=== PATIENT | male | born 1985 | race Caucasian/White ===

== ENCOUNTER 2018-09-20 04:03 | Emergency (ER) | payer OTHER ==
[~2018-09-20] VITALS: Ht 188 cm; Wt 70.3 kg
--- NOTE | 2018-09-20 04:14 | NUR ---
PT TAKEN TO BED 10.
[2018-09-20 04:25] VITALS: BP 136/83
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
[2018-09-20] MEDS ORDERED: ONDANSETRON 4 MG/2 ML VIAL IVP ONE (05:10)
[2018-09-20] MEDS ORDERED: ONDANSETRON 4 MG/2 ML VIAL ONE (05:21)
--- NOTE | 2018-09-20 05:28 | NUR ---
LABS DRAWN AT BEDSIDE BY RN AND TAKEN TO LAB.
[2018-09-20 05:32] LABS: BASOPHILS % (AUTO) 0.1 % (0.0-2.0); EOSINOPHILS # (AUTO) 0.1 K/uL (0-0.4); EOSINOPHILS % (AUTO) 0.8 % (0.0-4.0); HEMATOCRIT 40.9 % (36-52); HEMOGLOBIN 13.5 g/dL (12.0-18.0); LYMPHOCYTES # (AUTO) 1.3 K/uL (2.0-11.5); LYMPHOCYTES % (AUTO) 11.1 % (20.5-51.1); MEAN CORPUSCULAR HEMOGLOBIN 32 pg (27-31); MEAN CORPUSCULAR HGB CONC 33 g/dL (33-37); MEAN CORPUSCULAR VOLUME 95.5 fL (80-94); MONOCYTES # (AUTO) 1.3 K/uL (0.8-1.0); MONOCYTES % (AUTO) 10.9 % (1.7-9.3); NEUTROPHILS # (AUTO) 8.9 K/uL (1.8-7.7); NEUTROPHILS % (AUTO) 77.1 % (42.2-75.2); PLATELET COUNT (AUTO) 391 K/uL (140-450); RED BLOOD CELL COUNT(AUTO) 4.28 MIL/uL (4.20-6.10); RED CELL DISTRIBUTION WIDTH 13.3 % (11.6-13.7); WHITE BLOOD COUNT (AUTO) 11.5 K/uL (4.8-10.8)
[2018-09-20 05:42] LABS: ANION GAP 16.2 (8-16); CARBON DIOXIDE 26.6 mmol/L (21-32); CREATININE 0.9 mg/dL (0.7-1.3); POTASSIUM 3.8 mmol/L (3.5-5.1)
[2018-09-20 05:48] LABS: ALBUMIN 3.9 g/dL (3.4-5.0); TOTAL BILIRUBIN 0.2 mg/dL (0.0-1.0)
--- NOTE | 2018-09-20 06:06 | NUR ---
PT TAKEN TO CT
--- NOTE | 2018-09-20 06:33 | NUR ---
PT RETURN FROM CT
[2018-09-20 06:41] VITALS: BP 116/64
--- NOTE | 2018-09-20 07:16 | NUR ---
REPORT GIVEN TO TITI RODRIGUES.
--- NOTE | 2018-09-20 07:23 | NUR ---
Patient discharged BY GEETA WALLS. Written and verbal after care instructions given and explained BY GEETA WALLS Patient Ambulatory with steady gait. FOLLOW UP INSTRUCTIONS GIVEN FOR [facility].
== END 2018-09-20 07:23 | disposition home or self-care (01) ==
LOC: MED 04:03
DX: S06.0X9A Concussion with loss of consciousness of unspecified duration, initial encounter (principal); R11.2 Nausea with vomiting, unspecified; R51 Headache; M25.521 Pain in right elbow; V47.5XXA Car driver injured in collision with fixed or stationary object in traffic accident, initial encounter; Y93.89 Activity, other specified; Y92.89 Other specified places as the place of occurrence of the external cause; Y99.8 Other external cause status
CPT/HCPCS: 36415; 70450; 71270; 72125; 73080; 74178; 80053; 85025; 96374; 99284; J2405; Q0092; Q9967